=== PATIENT | male | born 1945 | race Two or more races ===

== ENCOUNTER 2016-09-04 18:34 | Inpatient (IN) | payer OTHER ==
[~2016-09-04] VITALS: Ht 170.2 cm; Wt 86.5 kg
[2016-09-04 19:53] LABS: CONDITION Y; Hematocrit 41.9 % (41.0-53.0); Hemoglobin 14.3 g/dL (13.5-17.5); Mean Corpuscular Hemoglobin 33.6 pg (28.0-32.0); Mean Corpuscular Volume 98.8 fL (80.0-100.0); Mean Platelet Volume 10.1 fL (7.4-10.4); Platelet Count (auto) 104 10^3/uL (140-450); White Blood Cell 4.4 10^3/uL (4.4-10.8)
[2016-09-04 19:57] LABS: Metamyelocytes % 0; Myelocytes % 0; Promyelocytes % 0; Reactive Lymphocytes 0
[2016-09-04 20:08] LABS: INR 1.23 (0.9-1.15); Partial Thromboplastin Time 31.6 sec (22.64-33.71)
[2016-09-04 20:10] LABS: Anion Gap 12 (5-15); Aspartate Aminotransferase 54 U/L (15-37); BUN/Creatinine Ratio 18.5; Blood Urea Nitrogen 12 mg/dL (7-18); Calcium 7.5 mg/dL (8.5-10.1); Carbon Dioxide 25 mmol/L (21-32); Chloride 88 mmol/L (98-107); GFR African American 157 mL/min; GFR Non-African American 129 mL/min; Glucose 94 mg/dL (74-106); Potassium 3.2 mmol/L (3.5-5.1); Sodium 125 mmol/L (136-145)
[2016-09-04 20:15] LABS: Alkaline Phosphatase 122 U/L (45-117); Bilirubin, Total 2.8 mg/dL (0.2-1.0); Total Protein 6.8 g/dL (6.4-8.2)
[2016-09-04 20:23] LABS: Prothrombin Time 13.4 sec (9.37-12.3)
[2016-09-04 20:29] LABS: B-Type Natriuretic Peptide 51.36 pg/mL (0-100)
[2016-09-04 20:30] LABS: Platelet Estimate Decreased; Temperature: 22.9 C (20.0-25.0)
[2016-09-05] MEDS ORDERED: SODIUM CHLORIDE 0.9% 1,000 ML IV ONE (00:15)
[2016-09-05] MEDS: SODIUM CHLORIDE 0.9% 1,000 ML IV SCH ×2 (04:56→12:04)
[2016-09-05] MEDS ORDERED: NITROGLYCERIN 0.4 MG SL TAB SL PRN (05:00)
[2016-09-05] MEDS ORDERED: MORPHINE SULF INJ 2 MG/ML SYRINGE 1ML IV PRN (05:00)
[2016-09-05] MEDS ORDERED: LACTULOSE 20Gm/30ML SOLN PO PRN (05:00)
[2016-09-05] MEDS ORDERED: POTASSIUM CHL 10% (20 MEQ/15ML) ORAL SOLN PO ONE (05:15)
[2016-09-05] MEDS ORDERED: ENOXAPARIN SOD 30 MG/0.3 ML SYRINGE SC SCH (10:00)
[2016-09-05] MEDS ORDERED: BUMETANIDE 1 MG TAB PO SCH (10:00)
[2016-09-05] MEDS ORDERED: HCTZ 25 MG TAB PO SCH (10:00)
[2016-09-05] MEDS: ENOXAPARIN SOD 40 MG/0.4 ML SYRINGE SC SCH (11:49)
[2016-09-05] MEDS: LISINOPRIL 20 MG TAB PO SCH (11:54)
[2016-09-05 12:24] VITALS: BP 122/60
[2016-09-05] MEDS: SOD CHL 0.9%/ KCL 40MEQ 1,000 ML IV SCH ×2 (14:12)
[2016-09-05] MEDS ORDERED: MORPHINE SULFATE 4 MG/ML SYRG IV PRN (14:29)
[2016-09-05] MEDS ORDERED: POTASSIUM CHL 20 Meq TABLET PO ONE (14:45)
[2016-09-05 16:26] VITALS: BP 120/57
[2016-09-05 16:57] LABS: Vitamin B12 1071 pg/mL (211-911)
[2016-09-05 17:04] LABS: Temperature: 23.4 C (20.0-25.0)
[2016-09-05 22:00] VITALS: BP 111/38
[2016-09-06 05:30] VITALS: BP 108/50
[2016-09-06 06:53] LABS: CONDITION Y; Hematocrit 40.4 % (41.0-53.0); Hemoglobin 13.7 g/dL (13.5-17.5); Mean Corpuscular Hemoglobin 33.8 pg (28.0-32.0); Mean Corpuscular Hgb Conc. 33.9 g/dL (32.0-36.0); Mean Corpuscular Volume 99.6 fL (80.0-100.0); Mean Platelet Volume 10.7 fL (7.4-10.4); Platelet Count (auto) 99 10^3/uL (140-450); Red Cell Distribution Width 16.4 % (11.6-16.0); SUSPECT SEE PRINTOUT; White Blood Cell 3.7 10^3/uL (4.4-10.8)
[2016-09-06 07:20] VITALS: BP 123/59
[2016-09-06 07:41] LABS: Albumin 2.6 g/dL (3.4-5.0); Bilirubin, Total 2.4 mg/dL (0.2-1.0); Calcium 7.9 mg/dL (8.5-10.1); Total Protein 5.9 g/dL (6.4-8.2)
[2016-09-06 07:42] LABS: Metamyelocytes % 0; Myelocytes % 0; Promyelocytes % 0; Reactive Lymphocytes 0
[2016-09-06] MEDS: ENOXAPARIN SOD 40 MG/0.4 ML SYRINGE SC SCH (09:47)
[2016-09-06] MEDS: LISINOPRIL 20 MG TAB PO SCH (09:47)
[2016-09-06 10:07] LABS: Platelet Estimate Decreased
[2016-09-06 11:23] VITALS: BP 123/59
[2016-09-06] MEDS ORDERED: SOD CHL 0.9%/ KCL 40MEQ 1,000 ML IV SCH (12:15)
[2016-09-06 13:05] VITALS: BP 116/47
[2016-09-08 09:07] LABS: Vitamin D 25-Hydroxy 20 ng/mL (.); Vitamin D-2 25-Hydroxy <1.0 ng/mL (.)
== END 2016-09-06 13:08 | disposition home or self-care (01) | DRG 641 ==
LOC: ER 18:39 → TELE 18:40 → TELE-E-ADS 09-05 09:05 → TELE-WESTW 09-05 15:26
PROVIDERS: ADMIT Family Medicine; ATTEND Internal Medicine
DX: E87.1 Hypo-osmolality and hyponatremia (principal); D68.9 Coagulation defect, unspecified; E44.0 Moderate protein-calorie malnutrition; D69.59 Other secondary thrombocytopenia; Z68.29 Body mass index [BMI] 29.0-29.9, adult; E55.9 Vitamin D deficiency, unspecified; E87.6 Hypokalemia; F10.21 Alcohol dependence, in remission; F32.9 Major depressive disorder, single episode, unspecified; I10 Essential (primary) hypertension; K70.9 Alcoholic liver disease, unspecified; K80.20 Calculus of gallbladder without cholecystitis without obstruction; E87.8 Other disorders of electrolyte and fluid balance, not elsewhere classified
CPT/HCPCS: 36415; 70450; 71010; 80053; 82306; 82607; 82746; 82962; 83735; 83880; 84484; 85007; 85025; 85027; 85610; 85730; 93005; 93306; 96360